=== PATIENT | female | born 1975 | race Caucasian/White ===

== ENCOUNTER 2019-05-06 19:27 | Emergency (ER) | payer BC, MEDICAID ==
[~2019-05-06] VITALS: Ht 162.6 cm; Wt 90.0 kg
[2019-05-06 19:50] VITALS: BP 132/89
== END 2019-05-06 22:12 | disposition home or self-care (01) ==
LOC: ER 19:28
DX: S61.012A Laceration without foreign body of left thumb without damage to nail, initial encounter (principal); W22.8XXA Striking against or struck by other objects, initial encounter; Y93.89 Activity, other specified; Y92.89 Other specified places as the place of occurrence of the external cause; Y99.8 Other external cause status
CPT/HCPCS: 12001; 99283

== ENCOUNTER 2021-04-29 19:59 | Emergency (ER) | payer BC, MEDICAID, OTHER ==
[~2021-04-29] VITALS: Ht 162.6 cm; Wt 94.5 kg
[2021-04-29 23:16] VITALS: BP 145/97
--- NOTE | 2021-04-29 23:56 | NUR ---
bruise yellow/purple all back of her upper leg. Pt worried it can be a blood clot.
== END 2021-04-30 00:48 | disposition home or self-care (01) ==
LOC: ER 19:59
DX: S80.12XA Contusion of left lower leg, initial encounter (principal); S70.12XA Contusion of left thigh, initial encounter; V91.87XA Other injury due to other accident to water-skis, initial encounter; Y93.89 Activity, other specified; Y92.89 Other specified places as the place of occurrence of the external cause; Y99.8 Other external cause status
CPT/HCPCS: 93971; 99284